=== PATIENT | female | born 1985 | race Caucasian/White ===

== ENCOUNTER 2019-07-15 16:21 | Emergency (ER) | payer OTHER ==
[~2019-07-15] VITALS: Ht 167.6 cm; Wt 67.0 kg
[2019-07-15] MEDS ORDERED: DEXT10TA7 PO (16:38)
[2019-07-15] MEDS ORDERED: LAMO100T5 PO (16:38)
[2019-07-15 17:53] VITALS: BP 135/96
--- NOTE | 2019-07-15 17:53 | NUR ---
PT CONTINUES TO BE UNCOMFORTABLE WITH ALL OVER BODY RASH. AWAITING MD MA
== END 2019-07-15 18:19 | disposition home or self-care (01) ==
LOC: ED 17:27
DX: L50.9 Urticaria, unspecified (principal); T42.6X5A Adverse effect of other antiepileptic and sedative-hypnotic drugs, initial encounter; J02.9 Acute pharyngitis, unspecified; Y92.89 Other specified places as the place of occurrence of the external cause
CPT/HCPCS: 99283